=== PATIENT | male | born 1950 | race Caucasian/White ===

== ENCOUNTER 2018-11-29 06:49 | Day surgery (SDC) | payer MEDICARE ==
[2018-11-24 15:08] LABS: BASOPHILS % (AUTO) 0.6 % (0-1); EOSINOPHILS # (AUTO) 0.2 X10'3 (0-0.9); EOSINOPHILS % (AUTO) 2.9 % (0-6); LYMPHOCYTES # (AUTO) 1.7 X10'3 (1.1-4.8); LYMPHOCYTES % (AUTO) 22.8 % (21-51); MEAN CORPUSCULAR HEMOGLOBIN 30.3 PG (27.0-31.0); MEAN CORPUSCULAR HGB CONC 33.5 g/dL (33.0-36.5); MEAN CORPUSCULAR VOLUME 90.3 FL (78-98); MEAN PLATELET VOLUME 9.2 FL (7.4-10.4); MONOCYTES # (AUTO) 0.7 X10'3 (0-0.9); MONOCYTES % (AUTO) 9.6 % (2-12); NEUTROPHILS # (AUTO) 4.8 X10'3 (1.8-7.7); NEUTROPHILS % (AUTO) 64.1 % (42-75); PRE OP HEMATOCRIT 45.3 % (42.0-52.0); PRE OP HEMOGLOBIN 15.2 g/dL (14.0-17.9); PRE OP PLATELET COUNT 227 X10'3 (140-440); RED BLOOD COUNT 5.02 X10'6 (4.70-6.10); RED CELL DISTRIBUTION WIDTH 13.7 % (11.5-14.5)
[2018-11-24 15:24] LABS: ALBUMIN 3.7 G/DL (3.4-5.0); ALKALINE PHOSPHATASE 77 IU/L (46-116); BLOOD UREA NITROGEN 21 MG/DL (7-18); BUN/CREATININE RATIO 23.6 (5.4-32.0); CALCIUM 8.7 MG/DL (8.5-10.1); CHLORIDE 106 MMOL/L (99-107); CREATININE 0.89 MG/DL (0.60-1.10); PRE OP ALT 31 U/L (30-65); PRE OP ANION GAP 8 (8-16); PRE OP AST 21 U/L (10-37); PRE OP BILIRUB, TOTAL 0.8 MG/DL (0.0-1.0); PRE OP GLUCOSE 96 MG/DL (70-104); PRE OP POTASSIUM 4.3 MMOL/L (3.4-5.1); PRE OP SODIUM 141 MMOL/L (135-145); TOTAL CARBON DIOXIDE 26.9 MMOL/L (24-32); TOTAL PROTEIN 7.4 G/DL (6.4-8.2); eGFR 85 ML/MIN
[~2018-11-29] VITALS: Ht 195.6 cm; Wt 133.8 kg
[~2018-11-29 06:49] MED LIST: BUPIVAcaine/PF 2.5mg/ml (0.25%) 10ml vial ONE; LEVO75TA PO; SIMV80TA2 PO; ceFAZolin/D5W- 1GM premix 50 ML IV ONE; cefazolin/dext.iso 2gm/50ml 50 ML IV ONE; famotidine 20mg tablet PO ONE; ringers solution, lacted 1,000 ML IV SCH
[2018-11-29 06:55] VITALS: BP 134/77
[2018-11-29] MEDS ORDERED: LIDOcaine 0.5% (5mg/ml) 50ml vial ONE (07:34)
[2018-11-29] MEDS ORDERED: ringers solution, lacted 1,000 ML IV SCH (08:07)
[2018-11-29] MEDS ORDERED: proCHLORperazine 10 MG/2 ml inj IV PRN (08:10)
[2018-11-29] MEDS ORDERED: meperidine/PF 25mg/ml syringe IV PRN ×3 (08:10)
[2018-11-29] MEDS ORDERED: ondansetron/PF 4mg/2ml inj IV PRN (08:10)
[2018-11-29] MEDS ORDERED: morphine 4 MG/ML inj SYRINge IV PRN ×2 (08:10)
[2018-11-29] MEDS ORDERED: midazolam 2 mg/2 ml injection ONE (09:25)
[2018-11-29] MEDS ORDERED: fentaNYL/PF 50MCG/1 ML 2ML syringe ONE (09:25)
[2018-11-29] MEDS ORDERED: propofol inj 20 ML IV ONE (09:52)
[2018-11-29 09:55] VITALS: BP_SYST 135
--- NOTE | 2018-11-29 09:55 | NUR ---
ADMITTED TO PACU FROM OR ACCOMPANIED BY ANESTHESIA. INTIAL PHYSICAL ASSESSMENT DONE AND RECORDED. AWAKE AND RESPONSE ON ARRIVE YO PACU, REPORT RECEIVED FROM ANESTHESIA.
[2018-11-29 10:05] VITALS: BP 123/72
[2018-11-29 10:15] VITALS: BP 138/83
[2018-11-29 10:25] VITALS: BP 147/82
[2018-11-29 10:35] VITALS: BP 129/86
--- NOTE | 2018-11-29 10:35 | NUR ---
Discharge criteria met, discharge instructions given, demonstrates verbal understanding. Discharged home in good condition.
== END 2018-11-29 10:35 | disposition home or self-care (01) ==
LOC: PAS 06:49
PROVIDERS: ATTEND Orthopaedic Surgery Hand Surgery
DX: G56.01 Carpal tunnel syndrome, right upper limb (principal); I49.1 Atrial premature depolarization
CPT/HCPCS: 29848; 36415; 80053; 85025; 93005; J0690; J2001; J2250; J2704; J3010; J3490; A4215; A4618; A6449; A7000; J7120

== ENCOUNTER 2020-01-27 11:33 | Day surgery (SDC) | payer MEDICARE ==
[2020-01-20 11:04] LABS: BASOPHILS % (AUTO) 0.6 % (0-1); EOSINOPHILS # (AUTO) 0.3 X10'3 (0-0.9); EOSINOPHILS % (AUTO) 3.5 % (0-6); LYMPHOCYTES % (AUTO) 25.3 % (21-51); MEAN CORPUSCULAR HEMOGLOBIN 30.2 PG (27.0-31.0); MEAN CORPUSCULAR HGB CONC 33.4 g/dL (33.0-36.5); MEAN CORPUSCULAR VOLUME 90.5 FL (78-98); MEAN PLATELET VOLUME 9.3 FL (7.4-10.4); MONOCYTES # (AUTO) 0.9 X10'3 (0-0.9); NEUTROPHILS # (AUTO) 4.6 X10'3 (1.8-7.7); NEUTROPHILS % (AUTO) 59.6 % (42-75); PRE OP HEMATOCRIT 46.2 % (42.0-52.0); PRE OP HEMOGLOBIN 15.4 g/dL (14.0-17.9); PRE OP PLATELET COUNT 214 X10'3 (140-440); RED CELL DISTRIBUTION WIDTH 13.2 % (11.5-14.5)
[2020-01-20 11:27] LABS: ALBUMIN 3.8 G/DL (3.4-5.0); ALKALINE PHOSPHATASE 95 IU/L (46-116); BLOOD UREA NITROGEN 22 MG/DL (7-18); BUN/CREATININE RATIO 23.9 (5.4-32.0); CALCIUM 8.9 MG/DL (8.5-10.1); CHLORIDE 104 MMOL/L (99-107); CREATININE 0.92 MG/DL (0.60-1.10); PRE OP ALT 24 U/L (30-65); PRE OP ANION GAP 9 (8-16); PRE OP AST 20 U/L (10-37); PRE OP GLUCOSE 79 MG/DL (70-104); PRE OP POTASSIUM 4.3 MMOL/L (3.4-5.1); PRE OP SODIUM 140 MMOL/L (135-145); TOTAL CARBON DIOXIDE 27.3 MMOL/L (24-32); TOTAL PROTEIN 7.7 G/DL (6.4-8.2); eGFR 81 ML/MIN
[~2020-01-27] VITALS: Ht 195.6 cm; Wt 133.8 kg
[~2020-01-27 11:33] MED LIST changes: -BUPIVAcaine/PF 2.5mg/ml (0.25%) 10ml vial ONE; +ceFAZolin inj. 3,000 MG in normal saline 100ml IV soln 100 ML IV ONE; -ceFAZolin/D5W- 1GM premix 50 ML IV ONE; -cefazolin/dext.iso 2gm/50ml 50 ML IV ONE
[2020-01-27 11:40] VITALS: BP 142/99
[2020-01-27] MEDS ORDERED: sevoflurane 250ml liquid IH ONE (13:42)
[2020-01-27] MEDS ORDERED: ondansetron/PF 4mg/2ml inj ONE (13:55)
[2020-01-27] MEDS ORDERED: LIDOcaine 2% (20mg/ml) 5ml vial ONE (13:55)
[2020-01-27] MEDS ORDERED: fentaNYL/PF 50MCG/1 ML 2ML syringe ONE (13:55)
[2020-01-27] MEDS ORDERED: dexamethasone sod phosphate 4mg/ml inj. ONE (13:55)
[2020-01-27] MEDS ORDERED: propofol inj 20 ML IV ONE (13:55)
[2020-01-27] MEDS ORDERED: bacitracin 15gm ointment TP ONE (14:05)
[2020-01-27] MEDS ORDERED: BUPIVAcaine/PF 2.5 mg/ml (0.25%) 30ml vial ONE (14:05)
[2020-01-27] MEDS ORDERED: morphine 4 MG/ML inj SYRINge IV PRN (14:15)
[2020-01-27] MEDS ORDERED: fentaNYL/PF 50MCG/1 ML 2ML syringe IV PRN ×2 (14:15)
[2020-01-27] MEDS ORDERED: hydrALAZINE 20mg/ml inj. IV PRN (14:15)
[2020-01-27] MEDS ORDERED: ondansetron/PF 4mg/2ml inj IV PRN (14:15)
[2020-01-27] MEDS ORDERED: morphine 2 MG/ML inj. syringe IV PRN (14:15)
[2020-01-27] MEDS ORDERED: labetalol 20mg/4ml (5mg/ml) syringe IV PRN (14:15)
[2020-01-27] MEDS ORDERED: ringers solution, lacted 1,000 ML IV SCH (14:15)
[2020-01-27 14:34] VITALS: BP 159/78
--- NOTE | 2020-01-27 14:34 | NUR ---
Received from OR via , accompanied by Anesthesiologist DR GROVE and report given by Anesthesiolgist. PT SLEEPING BUT OPENS EYES TO VOICE, SKIN WARM AND PINK, LEFT LE PULSE +3, NO C/O PAIN, VSS, PIV LEFT HAND 20G PATENT.
[2020-01-27 14:44] VITALS: BP 154/94
[2020-01-27 14:54] VITALS: BP 142/96
[2020-01-27 15:04] VITALS: BP 148/98
[2020-01-27 15:14] VITALS: BP 145/88
--- NOTE | 2020-01-27 15:14 | NUR ---
PT MEETS DISCHARGE CRITERIA, IV REMOVED, PT VERBALIZES UNDERSTANDING OF WRITTEN INSTRUCTIONS, NO C/O PAIN, PT UP INDEP WITH WALKING BOOT IN PLACE. PT PUT HIS GLASSES IN HIS SHORTS POCKET. NO C/O PAIN, DISCHARGED TO PRIVATE VEHICLE WITH .
== END 2020-01-27 15:14 | disposition home or self-care (01) ==
LOC: PAS 11:33
PROVIDERS: ATTEND Podiatrist Foot & Ankle Surgery
DX: M89.8X7 Other specified disorders of bone, ankle and foot (principal); Z20.828 Contact with and (suspected) exposure to other viral communicable diseases; E03.9 Hypothyroidism, unspecified; M19.072 Primary osteoarthritis, left ankle and foot; E78.00 Pure hypercholesterolemia, unspecified; Z72.89 Other problems related to lifestyle; Z79.899 Other long term (current) drug therapy; Z96.653 Presence of artificial knee joint, bilateral; Z98.890 Other specified postprocedural states
CPT/HCPCS: 28122; 36415; 73620; 76000; 80053; 82948; 85025; 87635; 93005; A6223; J0690; J1100; J2001; J2405; J2704; J3010; J3490; A4215; A4618; A6449; A7000; J7120